=== PATIENT | female | born 1955 | race Caucasian/White ===

== ENCOUNTER → 2016-03-12 | Outpatient (CLI) | payer BC ==
[~2016-03-12] MED LIST: ASPCH81X PO; CHOL400C7 PO; MULTTAB58 PO
== END | disposition home or self-care (01) ==
LOC: C.PAPS 14:45
PROVIDERS: ATTEND Obstetrics & Gynecology
DX: Z01.419 Encounter for gynecological examination (general) (routine) without abnormal findings (principal)